=== PATIENT | female | born 1985 | race African-American/Black ===

== ENCOUNTER 2020-08-18 00:47 | Emergency (ER) | payer OTHER ==
[~2020-08-18] VITALS: Ht 180.3 cm; Wt 105.7 kg
[2020-08-18 01:58] LABS: HEMATOCRIT 41.8 % (31.2-41.9); MEAN CORPUSCULAR HEMOGLOBIN 27.3 uug (24.7-32.8); MEAN CORPUSCULAR VOLUME 86.1 fL (75.5-95.3); PLATELET COUNT (AUTO) 190 K/uL (179-408)
--- NOTE | 2020-08-18 02:06 | NUR ---
Patient discharged to home in stable condition. Written and verbal after care instructions given. Patient verbalizes understanding of instructions. Stressed follow up or return to ER for worsening s/s. Ambulated from ER withstable giat. All belongings with patient
[2020-08-18 02:07] VITALS: BP 127/80
== END 2020-08-18 02:07 | disposition home or self-care (01) ==
LOC: ER 00:52
DX: M54.14 Radiculopathy, thoracic region (principal); Z91.81 History of falling
CPT/HCPCS: 36415; 85025; A4663